=== PATIENT | male | born 1965 | race African-American/Black ===

== ENCOUNTER 2022-08-30 17:07 | Emergency (ER) | payer OTHER ==
[2022-08-30 17:12] VITALS: BP 138/81; PULSE 65; RESP 16; TEMP 98.2; BMI 27.1
== END 2022-08-30 20:47 | disposition home or self-care (01) ==
LOC: JER 17:07
DX: S91.301A Unspecified open wound, right foot, initial encounter (principal); X58.XXXA Exposure to other specified factors, initial encounter
CPT/HCPCS: 99282-25